=== PATIENT | female | born 1965 | race Two or more races ===

== ENCOUNTER 2020-09-25 09:55 | Emergency (ER) | payer MEDICAID ==
[~2020-09-25] VITALS: Ht 154.9 cm; Wt 59.0 kg
--- NOTE | 2020-09-25 10:00 | NUR ---
ED Nurse Note: pt presents to ED c/o DAVIDSON onset yesterday, pt denies trauma or injury to the area, no fevers/chills; SOB
--- NOTE | 2020-09-25 10:41 | Emergency Room Report ---
History of Present Illness General Chief Complaint: Headache Source: Patient Present Illness HPI Disclaimer: Please note that this report is being documented using [employer] technology. This can lead to erroneous entry secondary to incorrect interpretation by the dictating instrument. HPI: 54-year-old female presents for evaluation of headache. Symptoms began yesterday upon waking. She reports a sudden severe left-sided headache that is throbbing. Pain is somewhat intermittent and at times will relieve completely. States when it comes on it comes on suddenly is 10/10. No exacerbating or relieving factors. Did not take any medication prior to arrival. States the pain started over the left ear and now spread over the left side of the skull. Denies changes in vision, balance, coordination, hearing. Denies tinnitus or vertigo. Does not typically get headaches. Denies head trauma. Denies fever or chills. Denies recent URI or other symptoms. PMH: Reviewed PSH: Reviewed Allergies: Denied Social Hx: Reviewed Allergies: Coded Allergies: No Known Allergies (Unverified , 09/25/20) COVID-19 Screening Contact w/high risk pt: No Experienced COVID-19 symptoms?: No COVID-19 Testing performed [employer]SULTANT: No Nursing Documentation-PMH Past Medical History: No History, Except For Hx Diabetes: Yes Review of Systems All Other Systems: negative except mentioned in HPI Physical Exam Vital Signs Date Time Temp Pulse Resp B/P (MAP) Pulse Ox O2 Delivery O2 Flow Rate FiO2 09/25/20 10:29 98.1 72 16 141/75 (97) 98 Room Air General: Awake and alert, no acute distress HEENT: NC/AT. EOMI. PERRLA. No nystagmus. Tympanic membranes are pearly van, nonbulging, nonerythematous bilaterally. No mastoid tenderness or edema or erythema. Hearing grossly intact. Vision grossly intact. Visual funez are full. No tenderness over the temples. No edema. Resp: Normal work of breathing Skin: Intact. No abrasions, laceration or rash over the exposed skin MSK: Normal tone and bulk. Moving all extremities. No obvious deformity. Neuro: Awake and alert. Mentating appropriately. Ambulating with steady gait. No ataxia on [id number] testing. Medical Decision Making Diagnostic Impression: Primary Impression: Headache ER Course Is a 54-year-old female presenting for evaluation of intermittent left-sided headache. No evidence of otitis media. CT scan head unremarkable for space-occupying mass or acute bleed. Low suspicion for other significant pathology at this time. No evidence of giant cell arteritis. Patient's headache is currently resolved. May be a cluster headache versus tension headache versus generalized headache. Will refer to her PMD for further testing as needed. Do not believe she requires emergent labs or further imaging in the ER at this time. Instructed to return with new or worsening symptoms. She understands and agrees with this treatment plan. CT/MRI/US Diagnostic Results CT/MRI/US Diagnostic Results : Impression IMPRESSION: No evidence of acute intracranial hemorrhage, mass effect or cortical edema. MRI may be obtained for more sensitive evaluation as clinically indicated. Dictated By: Ronnie Richardson M.D. Electronically Signed By:Ronnie Richardson M.D. Signed Date/Time09/25/20 1105 CC: James Connolly MD Last Vital Signs Date Time Temp Pulse Resp B/P (MAP) Pulse Ox O2 Delivery O2 Flow Rate FiO2 09/25/20 10:29 98.1 72 16 141/75 (97) 98 Room Air Disposition: HOME, SELF-CARE Condition: Stable Scripts Acetaminophen* (TYLENOL EXTRA STRENGTH*) 500 Mg Tablet 500 MG ORAL Q8H PRN for Prn Headache/Temp > 101, #30 TAB 0 Refills Prov: James Connolly MD 09/25/20 James Connolly MD Sep 25, 2020 10:41
[2020-09-25 11:00] VITALS: BP 141/75
--- NOTE | 2020-09-25 11:10 | Diagnostic Imaging Report ---
Indication: Headache Technique: Continuous helical CT scanning of the head was performed without intravenous contrast material. Axial and coronal 5 mm sections were generated. Radiation dose was minimized using automated exposure control Dose: Total Dose Length Product - DLP 1018.[address] Dose Index - CTDIvol(s) 53.4 mGy. Comparison: 02/29/2012 FINDINGS: There is no acute intracranial hemorrhage, mass effect or cortical edema. There is no shift of midline structures. Mild bilateral basal ganglia calcifications are again seen, similar to the prior exam. The ventricles, cisterns and sulci are normal for age. Visualized mastoid air cells and paranasal sinuses are unremarkable. No focal lesions of the bony calvarium or soft tissues of the scalp are seen. IMPRESSION: No evidence of acute intracranial hemorrhage, mass effect or cortical edema. MRI may be obtained for more sensitive evaluation as clinically indicated. The CT scanner at [facility] is accredited by the [employer] and the scans are performed using protocols designed to limit radiation exposure to as low as reasonably achievable to attain images of sufficient resolution adequate for diagnostic evaluation.
[2020-09-25] MEDS ORDERED: TYLENOL EXTRA500 MG ORAL (11:12)
[2020-09-25 11:20] VITALS: BP 141/75
--- NOTE | 2020-09-25 11:20 | NUR ---
ER DISCHARGE NOTE: Patient is cleared to be discharged per ERMD, pt is aox4, on room air, with stable vital signs. pt was given dc and prescription instructions, pt was able to verbalize understanding, pt id bandremoved without complications. pt is able to ambulate with steady gait. pt took all belongings.
== END 2020-09-25 11:20 | disposition home or self-care (01) ==
LOC: EMR 10:40
DX: R51.9 Headache, unspecified (principal); E11.9 Type 2 diabetes mellitus without complications
CPT/HCPCS: 70450; Z7502; 99284